=== PATIENT | male | born 1950 | race Caucasian/White ===

== ENCOUNTER 2018-07-18 09:51 | Outpatient (CLI) | payer OTHER, SELFPAY ==
[2018-07-18 10:14] LABS: Abs Immature Grans 0.07 k/cumm (0.0-0.09); Absolute Basophil Count 0.01 k/cumm (0.0-0.2); Absolute Lymphocyte Count 0.55 k/cumm (1.2-3.4); Absolute Neutrophil Count 6.17 k/cumm (1.2-6.7); Basophils % 0.1; HCT 41.1 % (40.0-50.0); Lymphocytes % 7.6; Mean Corp. HGB Concentration 34.1 g/dL (32.0-36.0); Mean Corpuscular Hemoglobin 32.6 pg (27.0-33.0); Mean Corpuscular Volume 95.8 fL (80-95); Mean Platelet Volume 8.8 fL (8.0-11.0); Monocytes % 5.6; Neutrophils % 85.7; Platelet Count 140 x1000/uL (130-400); RBC 4.29 m/cumm (4.50-6.00); RBC Distribution Width 14.6 % (11.8-14.1)
[2018-07-18 10:14] LABS: Bilirubin Negative (Negative); Blood Trace-intact (Negative); Clarity Clear; Glucose Negative (Negative); Ketones Negative (Negative); Leukocyte Esterase Negative (Negative); Nitrite Negative (Negative); Specific Gravity >= 1.030 (1.005-1.025); Urobilinogen 0.2 EU/dL (Up TO 0.2)
[2018-07-18 10:22] LABS: Bacteria Few HPF (Negative); C & S Indicated? No; Casts Negative LPF (Negative); Crystals Negative HPF (Negative); Epithelial Cells Rare HPF (Negative); Mucus Moderate (Negative); WBC 0-2 HPF (0-5)
[2018-07-18 10:31] LABS: ALT 42 U/L (12-78); AST 14 U/L (15-37); Albumin 3.3 g/dL (3.4-5.0); Alkaline Phosphatase 79 U/L (46-116); Anion Gap 7.3 mmol/L (3-11); BUN 20 mg/dL (7-18); Bilirubin, Total 0.3 mg/dL (0.2-1.0); CO2 24.7 mmol/L (21.0-32.0); CREATININE 0.93 mg/dL (0.70-1.30); Calcium 8.7 mg/dL (8.5-10.1); Chloride 102 mmol/L (98-107); Glucose 170 mg/dL (70-100); Potassium 3.7 mmol/L (3.5-5.1); Sodium 134 mmol/L (136-145); Total Protein 6.8 g/dL (6.4-8.2)
== END 2018-07-18 09:52 ==
PROVIDERS: Nurse Practitioner; PCP Family Medicine; Visit Provider Psychiatry & Neurology Neurology
DX: C71.9 Malignant neoplasm of brain, unspecified (principal)
CPT/HCPCS: 36415; 80053; 81003; 81015; 85025

== ENCOUNTER 2018-08-29 09:45 | Outpatient (CLI) | payer OTHER, SELFPAY ==
[2018-08-29 10:13] LABS: Bilirubin Negative (Negative); Blood Negative (Negative); Clarity Clear; Glucose Negative (Negative); Ketones Negative (Negative); Leukocyte Esterase Negative (Negative); Nitrite Negative (Negative); Specific Gravity >= 1.030 (1.005-1.025); Urobilinogen 0.2 EU/dL (Up TO 0.2); pH 5.5 (5-8)
[2018-08-29 10:33] LABS: ALT 42 U/L (12-78); AST 23 U/L (15-37); Albumin 3.6 g/dL (3.4-5.0); Alkaline Phosphatase 88 U/L (46-116); Anion Gap 8.3 mmol/L (3-11); BUN 14 mg/dL (7-18); Bilirubin, Total 0.4 mg/dL (0.2-1.0); CO2 28.7 mmol/L (21.0-32.0); CREATININE 0.96 mg/dL (0.70-1.30); Calcium 9.3 mg/dL (8.5-10.1); Chloride 103 mmol/L (98-107); Glucose 130 mg/dL (70-100); Potassium 3.9 mmol/L (3.5-5.1); Sodium 140 mmol/L (136-145); Total Protein 6.9 g/dL (6.4-8.2)
[2018-08-29 10:37] LABS: Abs Immature Grans 0.05 k/cumm (0.0-0.09); Absolute Basophil Count 0.03 k/cumm (0.0-0.2); Absolute Eosinophil Count 0.03 k/cumm (0.0-0.7); Absolute Monocyte Count 0.55 k/cumm (0.11-0.7); Absolute Neutrophil Count 1.49 k/cumm (1.2-6.7); HCT 37.8 % (40.0-50.0); HGB 12.4 g/dL (13.5-17.5); Immature Grans % 1.7; Lymphocytes % 27.1; Mean Corp. HGB Concentration 32.8 g/dL (32.0-36.0); Mean Corpuscular Hemoglobin 32.7 pg (27.0-33.0); Mean Corpuscular Volume 99.7 fL (80-95); Mean Platelet Volume 9.6 fL (8.0-11.0); Monocytes % 18.6; Neutrophils % 50.6; Platelet Count 183 x1000/uL (130-400); RBC 3.79 m/cumm (4.50-6.00); RBC Distribution Width 18.1 % (11.8-14.1); White Blood Cell Count 2.95 k/cumm (4.4-10.8)
[2018-08-29 11:01] LABS: Diff Comment Agrees w/ Instrument
[2018-08-29 11:02] LABS: Anisocytosis 1+; Polychromasia Present
== END 2018-08-29 10:05 ==
PROVIDERS: PCP Family Medicine; Visit Provider Nurse Practitioner
DX: C71.9 Malignant neoplasm of brain, unspecified (principal)
CPT/HCPCS: 36415; 80053; 81003; 85025

== ENCOUNTER 2018-10-08 09:56 | Outpatient (CLI) | payer OTHER, SELFPAY ==
[2018-10-08 10:23] LABS: Abs Immature Grans 0.02 k/cumm (0.0-0.09); Absolute Basophil Count 0.04 k/cumm (0.0-0.2); Absolute Eosinophil Count 0.16 k/cumm (0.0-0.7); Absolute Monocyte Count 0.51 k/cumm (0.11-0.7); Absolute Neutrophil Count 2.91 k/cumm (1.2-6.7); Basophils % 0.9; Eosinophils % 3.6; HCT 42.8 % (40.0-50.0); HGB 14.2 g/dL (13.5-17.5); Immature Grans % 0.5; Mean Corp. HGB Concentration 33.2 g/dL (32.0-36.0); Mean Corpuscular Hemoglobin 33.6 pg (27.0-33.0); Mean Corpuscular Volume 101.4 fL (80-95); Mean Platelet Volume 9.9 fL (8.0-11.0); Monocytes % 11.5; Neutrophils % 65.5; Platelet Count 161 x1000/uL (130-400); RBC 4.22 m/cumm (4.50-6.00); RBC Distribution Width 13.7 % (11.8-14.1); White Blood Cell Count 4.44 k/cumm (4.4-10.8)
[2018-10-08 10:25] LABS: Bilirubin Negative (Negative); Blood Negative (Negative); Clarity Clear; Glucose Negative (Negative); Ketones Negative (Negative); Leukocyte Esterase Negative (Negative); Nitrite Negative (Negative); Specific Gravity >= 1.030 (1.005-1.025); Urobilinogen 0.2 EU/dL (Up TO 0.2); pH 5.5 (5-8)
[2018-10-08 10:48] LABS: ALT 35 U/L (12-78); AST 23 U/L (15-37); Albumin 3.7 g/dL (3.4-5.0); Alkaline Phosphatase 79 U/L (46-116); BUN 16 mg/dL (7-18); Bilirubin, Total 0.4 mg/dL (0.2-1.0); CREATININE 0.89 mg/dL (0.70-1.30); Calcium 9.1 mg/dL (8.5-10.1); Chloride 103 mmol/L (98-107); Glucose 91 mg/dL (70-100); Potassium 3.9 mmol/L (3.5-5.1); Sodium 139 mmol/L (136-145); Total Protein 6.9 g/dL (6.4-8.2)
== END 2018-10-08 10:16 ==
PROVIDERS: PCP Family Medicine; Visit Provider Nurse Practitioner
DX: C71.9 Malignant neoplasm of brain, unspecified (principal)
CPT/HCPCS: 36415; 80053; 81003; 85025

== ENCOUNTER 2018-10-22 09:55 | Outpatient (CLI) | payer OTHER, SELFPAY ==
[2018-10-22 10:15] LABS: Abs Immature Grans 0.02 k/cumm (0.0-0.09); Absolute Basophil Count 0.04 k/cumm (0.0-0.2); Absolute Eosinophil Count 0.11 k/cumm (0.0-0.7); Absolute Lymphocyte Count 0.85 k/cumm (1.2-3.4); Absolute Monocyte Count 0.48 k/cumm (0.11-0.7); Basophils % 0.9; Eosinophils % 2.5; HCT 43.5 % (40.0-50.0); HGB 14.7 g/dL (13.5-17.5); Immature Grans % 0.5; Lymphocytes % 19.3; Mean Corp. HGB Concentration 33.8 g/dL (32.0-36.0); Mean Corpuscular Hemoglobin 33.6 pg (27.0-33.0); Mean Corpuscular Volume 99.3 fL (80-95); Mean Platelet Volume 10.1 fL (8.0-11.0); Monocytes % 10.9; Neutrophils % 65.9; RBC 4.38 m/cumm (4.50-6.00)
[2018-10-22 10:31] LABS: ALT 39 U/L (12-78); AST 26 U/L (15-37); Albumin 3.7 g/dL (3.4-5.0); Alkaline Phosphatase 79 U/L (46-116); Anion Gap 7.7 mmol/L (3-11); BUN 16 mg/dL (7-18); Bilirubin, Total 0.3 mg/dL (0.2-1.0); CO2 27.3 mmol/L (21.0-32.0); CREATININE 0.99 mg/dL (0.70-1.30); Calcium 9.2 mg/dL (8.5-10.1); Chloride 106 mmol/L (98-107); Glucose 95 mg/dL (70-100); Potassium 4.7 mmol/L (3.5-5.1); Sodium 141 mmol/L (136-145); Total Protein 6.9 g/dL (6.4-8.2)
[2018-10-22 10:34] LABS: Bilirubin Negative (Negative); Blood Trace-intact (Negative); Clarity Clear; Glucose Negative (Negative); Ketones Negative (Negative); Leukocyte Esterase Negative (Negative); Nitrite Negative (Negative); Specific Gravity >= 1.030 (1.005-1.025); Urobilinogen 0.2 EU/dL (Up TO 0.2)
[2018-10-22 10:45] LABS: Platelet Count 89 x1000/uL (130-400)
[2018-10-22 10:46] LABS: Diff Comment PLT Morph Reviewed
[2018-10-22 11:08] LABS: Bacteria Rare HPF (Negative); Epithelial Cells Negative HPF (Negative); Other Cells Negative (Negative)
[2018-10-22 11:09] LABS: C & S Indicated? No; Casts Negative LPF (Negative); Crystals Negative HPF (Negative); Mucus Heavy (Negative)
== END 2018-10-22 10:15 ==
PROVIDERS: Nurse Practitioner; PCP Family Medicine; Visit Provider Psychiatry & Neurology Neurocritical Care
DX: C71.9 Malignant neoplasm of brain, unspecified (principal)
CPT/HCPCS: 36415; 80053; 81003; 81015; 85025

== ENCOUNTER 2018-11-20 07:01 | Outpatient (CLI) | payer OTHER, SELFPAY ==
[2018-11-20 07:36] LABS: Abs Immature Grans 0.03 k/cumm (0.0-0.09); Absolute Basophil Count 0.02 k/cumm (0.0-0.2); Absolute Eosinophil Count 0.07 k/cumm (0.0-0.7); Absolute Lymphocyte Count 0.86 k/cumm (1.2-3.4); Absolute Monocyte Count 0.55 k/cumm (0.11-0.7); Absolute Neutrophil Count 1.83 k/cumm (1.2-6.7); Basophils % 0.6; Eosinophils % 2.1; HCT 45.2 % (40.0-50.0); HGB 14.9 g/dL (13.5-17.5); Immature Grans % 0.9; Lymphocytes % 25.6; Mean Corpuscular Hemoglobin 32.2 pg (27.0-33.0); Mean Corpuscular Volume 97.6 fL (80-95); Mean Platelet Volume 9.8 fL (8.0-11.0); Monocytes % 16.4; Neutrophils % 54.4; Platelet Count 155 x1000/uL (130-400); RBC 4.63 m/cumm (4.50-6.00); RBC Distribution Width 13.3 % (11.8-14.1); White Blood Cell Count 3.36 k/cumm (4.4-10.8)
[2018-11-20 07:45] LABS: ALT 37 U/L (12-78); AST 22 U/L (15-37); Albumin 3.6 g/dL (3.4-5.0); Alkaline Phosphatase 79 U/L (46-116); Anion Gap 8.3 mmol/L (3-11); BUN 19 mg/dL (7-18); Bilirubin Negative (Negative); Bilirubin, Total 0.4 mg/dL (0.2-1.0); Blood Trace-intact (Negative); CO2 28.7 mmol/L (21.0-32.0); CREATININE 0.98 mg/dL (0.70-1.30); Chloride 102 mmol/L (98-107); Clarity Clear; Glucose 107 mg/dL (70-100); Glucose Negative (Negative); Ketones Negative (Negative); Leukocyte Esterase Negative (Negative); Nitrite Negative (Negative); Potassium 3.9 mmol/L (3.5-5.1); Sodium 139 mmol/L (136-145); Specific Gravity 1.025 (1.005-1.025); Total Protein 6.9 g/dL (6.4-8.2); Urobilinogen 0.2 EU/dL (Up TO 0.2)
[2018-11-20 08:06] LABS: Bacteria Few HPF (Negative); Casts Negative LPF (Negative); Crystals Negative HPF (Negative); Epithelial Cells Rare HPF (Negative); Mucus Moderate (Negative); Other Cells Negative (Negative)
[2018-11-20 08:07] LABS: C & S Indicated? No
== END 2018-11-20 07:21 ==
PROVIDERS: PCP Family Medicine; Visit Provider Psychiatry & Neurology Neurocritical Care
DX: C71.9 Malignant neoplasm of brain, unspecified (principal)
CPT/HCPCS: 36415; 80053; 81003; 81015; 85025

== ENCOUNTER 2018-12-02 07:39 | Outpatient (CLI) | payer OTHER, SELFPAY ==
[2018-12-02 08:03] LABS: Abs Immature Grans 0.01 k/cumm (0.0-0.09); Absolute Basophil Count 0.01 k/cumm (0.0-0.2); Absolute Eosinophil Count 0.06 k/cumm (0.0-0.7); Absolute Lymphocyte Count 0.73 k/cumm (1.2-3.4); Absolute Monocyte Count 0.47 k/cumm (0.11-0.7); Absolute Neutrophil Count 1.94 k/cumm (1.2-6.7); Basophils % 0.3; Eosinophils % 1.9; HCT 44.4 % (40.0-50.0); HGB 14.4 g/dL (13.5-17.5); Immature Grans % 0.3; Lymphocytes % 22.7; Mean Corp. HGB Concentration 32.4 g/dL (32.0-36.0); Mean Corpuscular Hemoglobin 31.9 pg (27.0-33.0); Mean Corpuscular Volume 98.4 fL (80-95); Mean Platelet Volume 9.5 fL (8.0-11.0); Monocytes % 14.6; Neutrophils % 60.2; Platelet Count 147 x1000/uL (130-400); RBC 4.51 m/cumm (4.50-6.00); RBC Distribution Width 13.7 % (11.8-14.1); White Blood Cell Count 3.22 k/cumm (4.4-10.8)
[2018-12-02 08:09] LABS: Bilirubin Negative (Negative); Blood Negative (Negative); Clarity Clear; Glucose Negative (Negative); Ketones Negative (Negative); Leukocyte Esterase Negative (Negative); Nitrite Negative (Negative); Specific Gravity >= 1.030 (1.005-1.025); Urobilinogen 0.2 EU/dL (Up TO 0.2)
[2018-12-02 08:19] LABS: ALT 32 U/L (12-78); AST 18 U/L (15-37); Albumin 3.4 g/dL (3.4-5.0); Alkaline Phosphatase 79 U/L (46-116); BUN 15 mg/dL (7-18); Bilirubin, Total 0.3 mg/dL (0.2-1.0); CREATININE 0.98 mg/dL (0.70-1.30); Calcium 8.9 mg/dL (8.5-10.1); Chloride 107 mmol/L (98-107); Glucose 109 mg/dL (70-100); Potassium 4.2 mmol/L (3.5-5.1); Sodium 143 mmol/L (136-145); Total Protein 6.8 g/dL (6.4-8.2)
== END 2018-12-02 07:59 ==
PROVIDERS: PCP Internal Medicine; Visit Provider Nurse Practitioner
DX: C71.9 Malignant neoplasm of brain, unspecified (principal)
CPT/HCPCS: 36415; 80053; 81003; 85025

== ENCOUNTER 2018-12-18 11:53 | Outpatient (CLI) | payer OTHER, SELFPAY ==
[2018-12-18 12:27] LABS: Bilirubin Negative (Negative); Blood Negative (Negative); Clarity Clear; Glucose Negative (Negative); Ketones Trace mg/dL (Negative); Leukocyte Esterase Negative (Negative); Nitrite Negative (Negative); Specific Gravity >= 1.030 (1.005-1.025); Urobilinogen 0.2 EU/dL (Up TO 0.2)
[2018-12-18 12:27] LABS: Abs Immature Grans 0.05 k/cumm (0.0-0.09); Absolute Basophil Count 0.04 k/cumm (0.0-0.2); Absolute Eosinophil Count 0.07 k/cumm (0.0-0.7); Absolute Lymphocyte Count 0.93 k/cumm (1.2-3.4); Absolute Monocyte Count 0.59 k/cumm (0.11-0.7); Eosinophils % 1.7; HCT 46.2 % (40.0-50.0); HGB 15.1 g/dL (13.5-17.5); Immature Grans % 1.2; Lymphocytes % 22.2; Mean Corp. HGB Concentration 32.7 g/dL (32.0-36.0); Mean Corpuscular Hemoglobin 31.2 pg (27.0-33.0); Mean Corpuscular Volume 95.5 fL (80-95); Mean Platelet Volume 10.5 fL (8.0-11.0); Monocytes % 14.1; Neutrophils % 59.8; RBC 4.84 m/cumm (4.50-6.00); RBC Distribution Width 14.2 % (11.8-14.1); White Blood Cell Count 4.18 k/cumm (4.4-10.8)
[2018-12-18 12:33] LABS: ALT 27 U/L (12-78); AST 18 U/L (15-37); Albumin 3.6 g/dL (3.4-5.0); Alkaline Phosphatase 78 U/L (46-116); Anion Gap 5.9 mmol/L (3-11); BUN 20 mg/dL (7-18); Bilirubin, Total 0.4 mg/dL (0.2-1.0); CO2 30.1 mmol/L (21.0-32.0); CREATININE 0.92 mg/dL (0.70-1.30); Calcium 9.1 mg/dL (8.5-10.1); Chloride 106 mmol/L (98-107); Glucose 73 mg/dL (70-100); Potassium 4.2 mmol/L (3.5-5.1); Sodium 142 mmol/L (136-145)
[2018-12-18 12:42] LABS: Bacteria Rare HPF (Negative); C & S Indicated? No; Casts Negative LPF (Negative); Crystals Negative HPF (Negative); Epithelial Cells Negative HPF (Negative); Mucus Moderate (Negative); Other Cells Rare Renal (Negative); WBC 0-2 HPF (0-5)
[2018-12-18 12:45] LABS: Platelet Count 89 x1000/uL (130-400)
[2018-12-18 12:46] LABS: Diff Comment PLT Morph Reviewed; RBC Morphology Normal
== END 2018-12-18 12:13 ==
PROVIDERS: Nurse Practitioner; PCP Internal Medicine; Visit Provider Psychiatry & Neurology Neurocritical Care
DX: C71.8 Malignant neoplasm of overlapping sites of brain (principal)
CPT/HCPCS: 36415; 80053; 81003; 81015; 85025

== ENCOUNTER 2019-01-01 07:42 | Outpatient (CLI) | payer OTHER, SELFPAY ==
[2019-01-01 08:17] LABS: Bilirubin Negative (Negative); Blood Trace-intact (Negative); Clarity Clear; Glucose Negative (Negative); Ketones Trace mg/dL (Negative); Leukocyte Esterase Negative (Negative); Nitrite Negative (Negative); Specific Gravity 1.025 (1.005-1.025)
[2019-01-01 08:27] LABS: Absolute Basophil Count 0.03 k/cumm (0.0-0.2); Absolute Eosinophil Count 0.17 k/cumm (0.0-0.7); Absolute Lymphocyte Count 0.87 k/cumm (1.2-3.4); Absolute Monocyte Count 0.51 k/cumm (0.11-0.7); Absolute Neutrophil Count 3.12 k/cumm (1.2-6.7); Basophils % 0.6; Eosinophils % 3.6; HCT 44.1 % (40.0-50.0); HGB 14.3 g/dL (13.5-17.5); Lymphocytes % 18.5; Mean Corp. HGB Concentration 32.4 g/dL (32.0-36.0); Mean Corpuscular Hemoglobin 31.5 pg (27.0-33.0); Mean Corpuscular Volume 97.1 fL (80-95); Mean Platelet Volume 10.1 fL (8.0-11.0); Monocytes % 10.9; Neutrophils % 66.4; RBC 4.54 m/cumm (4.50-6.00); RBC Distribution Width 14.7 % (11.8-14.1)
[2019-01-01 08:29] LABS: ALT 32 U/L (12-78); AST 21 U/L (15-37); Albumin 3.4 g/dL (3.4-5.0); Alkaline Phosphatase 81 U/L (46-116); Anion Gap 5.1 mmol/L (3-11); BUN 16 mg/dL (7-18); Bilirubin, Total 0.4 mg/dL (0.2-1.0); CO2 29.9 mmol/L (21.0-32.0); CREATININE 1.04 mg/dL (0.70-1.30); Calcium 8.8 mg/dL (8.5-10.1); Chloride 105 mmol/L (98-107); Glucose 98 mg/dL (70-100); Potassium 4.4 mmol/L (3.5-5.1); Sodium 140 mmol/L (136-145); Total Protein 6.8 g/dL (6.4-8.2)
[2019-01-01 08:34] LABS: Bacteria Rare HPF (Negative); C & S Indicated? No; Casts Negative LPF (Negative); Crystals Negative HPF (Negative); Epithelial Cells Few HPF (Negative); Mucus Moderate (Negative); WBC Negative HPF (0-5)
[2019-01-01 08:37] LABS: Platelet Count 67 x1000/uL (130-400)
== END 2019-01-01 08:02 ==
PROVIDERS: Nurse Practitioner; PCP Internal Medicine; Visit Provider Psychiatry & Neurology Neurocritical Care
DX: C71.9 Malignant neoplasm of brain, unspecified (principal)
CPT/HCPCS: 36415; 80053; 81003; 81015; 85025

== ENCOUNTER 2019-01-08 07:21 | Outpatient (CLI) | payer OTHER, SELFPAY ==
[2019-01-08 07:49] LABS: Abs Immature Grans 0.02 k/cumm (0.0-0.09); Absolute Basophil Count 0.01 k/cumm (0.0-0.2); Absolute Eosinophil Count 0.18 k/cumm (0.0-0.7); Absolute Lymphocyte Count 0.83 k/cumm (1.2-3.4); Absolute Monocyte Count 0.43 k/cumm (0.11-0.7); Absolute Neutrophil Count 2.92 k/cumm (1.2-6.7); Basophils % 0.2; Eosinophils % 4.1; HCT 45.3 % (40.0-50.0); HGB 14.9 g/dL (13.5-17.5); Immature Grans % 0.5; Lymphocytes % 18.9; Mean Corp. HGB Concentration 32.9 g/dL (32.0-36.0); Mean Corpuscular Hemoglobin 31.8 pg (27.0-33.0); Mean Corpuscular Volume 96.6 fL (80-95); Mean Platelet Volume 10.4 fL (8.0-11.0); Monocytes % 9.8; Neutrophils % 66.5; Platelet Count 83 x1000/uL (130-400); RBC 4.69 m/cumm (4.50-6.00); RBC Distribution Width 15.4 % (11.8-14.1); White Blood Cell Count 4.39 k/cumm (4.4-10.8)
[2019-01-08 08:04] LABS: Bilirubin Negative (Negative); Blood Negative (Negative); Clarity Clear; Glucose Negative (Negative); Ketones Trace mg/dL (Negative); Leukocyte Esterase Negative (Negative); Nitrite Negative (Negative); Specific Gravity >= 1.030 (1.005-1.025); Urobilinogen 0.2 EU/dL (Up TO 0.2); pH 5.5 (5-8)
[2019-01-08 09:00] LABS: ALT 32 U/L (12-78); AST 21 U/L (15-37); Albumin 3.6 g/dL (3.4-5.0); Alkaline Phosphatase 90 U/L (46-116); Anion Gap 10.7 mmol/L (3-11); BUN 16 mg/dL (7-18); Bilirubin, Total 0.7 mg/dL (0.2-1.0); CO2 24.3 mmol/L (21.0-32.0); CREATININE 1.05 mg/dL (0.70-1.30); Calcium 9.2 mg/dL (8.5-10.1); Chloride 105 mmol/L (98-107); Glucose 113 mg/dL (70-100); Potassium 4.1 mmol/L (3.5-5.1); Sodium 140 mmol/L (136-145); Total Protein 7.1 g/dL (6.4-8.2)
== END 2019-01-08 07:41 ==
PROVIDERS: PCP Internal Medicine; Visit Provider Nurse Practitioner
DX: C71.9 Malignant neoplasm of brain, unspecified (principal)
CPT/HCPCS: 36415; 80053; 81003; 85025

== ENCOUNTER 2019-01-21 00:50 | Outpatient (CLI) | payer OTHER, SELFPAY ==
[2019-01-21 07:45] LABS: Abs Immature Grans 0.02 k/cumm (0.0-0.09); Absolute Basophil Count 0.02 k/cumm (0.0-0.2); Absolute Eosinophil Count 0.08 k/cumm (0.0-0.7); Absolute Lymphocyte Count 0.73 k/cumm (1.2-3.4); Absolute Monocyte Count 0.35 k/cumm (0.11-0.7); Absolute Neutrophil Count 2.21 k/cumm (1.2-6.7); Basophils % 0.6; Eosinophils % 2.3; HCT 43.4 % (40.0-50.0); HGB 14.2 g/dL (13.5-17.5); Immature Grans % 0.6; Lymphocytes % 21.4; Mean Corp. HGB Concentration 32.7 g/dL (32.0-36.0); Mean Corpuscular Hemoglobin 32.2 pg (27.0-33.0); Mean Corpuscular Volume 98.4 fL (80-95); Mean Platelet Volume 9.4 fL (8.0-11.0); Monocytes % 10.3; Neutrophils % 64.8; Platelet Count 116 x1000/uL (130-400); RBC 4.41 m/cumm (4.50-6.00); RBC Distribution Width 15.7 % (11.8-14.1); White Blood Cell Count 3.41 k/cumm (4.4-10.8)
[2019-01-21 07:54] LABS: Bilirubin Negative (Negative); Blood Negative (Negative); Clarity Clear; Glucose Negative (Negative); Ketones Trace mg/dL (Negative); Leukocyte Esterase Negative (Negative); Nitrite Negative (Negative); Specific Gravity 1.025 (1.005-1.025); Urobilinogen 0.2 EU/dL (Up TO 0.2)
[2019-01-21 07:58] LABS: ALT 33 U/L (12-78); AST 20 U/L (15-37); Albumin 3.5 g/dL (3.4-5.0); Alkaline Phosphatase 87 U/L (46-116); Anion Gap 7.5 mmol/L (3-11); BUN 15 mg/dL (7-18); Bilirubin, Total 0.6 mg/dL (0.2-1.0); CO2 28.5 mmol/L (21.0-32.0); CREATININE 0.93 mg/dL (0.70-1.30); Chloride 105 mmol/L (98-107); Glucose 104 mg/dL (70-100); Potassium 4.5 mmol/L (3.5-5.1); Sodium 141 mmol/L (136-145); Total Protein 6.7 g/dL (6.4-8.2)
== END 2019-01-21 01:10 ==
PROVIDERS: PCP Internal Medicine; Visit Provider Nurse Practitioner
DX: C71.9 Malignant neoplasm of brain, unspecified (principal)
CPT/HCPCS: 36415; 80053; 81003; 85025

== ENCOUNTER 2019-02-05 07:25 | Outpatient (CLI) | payer OTHER, SELFPAY ==
[2019-02-05 07:52] LABS: Abs Immature Grans 0.01 k/cumm (0.0-0.09); Absolute Basophil Count 0.03 k/cumm (0.0-0.2); Absolute Eosinophil Count 0.09 k/cumm (0.0-0.7); Absolute Lymphocyte Count 0.81 k/cumm (1.2-3.4); Absolute Monocyte Count 0.56 k/cumm (0.11-0.7); Basophils % 0.8; Eosinophils % 2.3; HCT 43.6 % (40.0-50.0); HGB 14.6 g/dL (13.5-17.5); Immature Grans % 0.3; Lymphocytes % 20.3; Mean Corp. HGB Concentration 33.5 g/dL (32.0-36.0); Mean Corpuscular Hemoglobin 33.5 pg (27.0-33.0); Mean Platelet Volume 9.6 fL (8.0-11.0); Neutrophils % 62.3; Platelet Count 115 x1000/uL (130-400); RBC 4.36 m/cumm (4.50-6.00)
[2019-02-05 07:57] LABS: Absolute Neutrophil Count 2.49 k/cumm (1.2-6.7)
[2019-02-05 08:02] LABS: Bilirubin Small (Negative); Blood Negative (Negative); Clarity Clear; Glucose Negative (Negative); Ketones Trace mg/dL (Negative); Leukocyte Esterase Negative (Negative); Nitrite Negative (Negative); Specific Gravity >= 1.030 (1.005-1.025); Urobilinogen 0.2 EU/dL (Up TO 0.2); pH 5.5 (5-8)
[2019-02-05 08:09] LABS: ALT 35 U/L (12-78); AST 27 U/L (15-37); Albumin 3.7 g/dL (3.4-5.0); Alkaline Phosphatase 82 U/L (46-116); Anion Gap 6.7 mmol/L (3-11); BUN 22 mg/dL (7-18); Bilirubin, Total 0.6 mg/dL (0.2-1.0); CO2 29.3 mmol/L (21.0-32.0); CREATININE 0.99 mg/dL (0.70-1.30); Calcium 8.9 mg/dL (8.5-10.1); Chloride 102 mmol/L (98-107); Glucose 102 mg/dL (70-100); Potassium 4.2 mmol/L (3.5-5.1); Sodium 138 mmol/L (136-145)
== END 2019-02-05 07:45 ==
PROVIDERS: PCP Internal Medicine; Visit Provider Nurse Practitioner
DX: C71.8 Malignant neoplasm of overlapping sites of brain (principal)
CPT/HCPCS: 36415; 80053; 81003; 85025

== ENCOUNTER 2019-02-19 00:46 | Outpatient (CLI) | payer OTHER, SELFPAY ==
[2019-02-19 07:42] LABS: Abs Immature Grans 0.02 k/cumm (0.0-0.09); Absolute Basophil Count 0.05 k/cumm (0.0-0.2); Absolute Eosinophil Count 0.52 k/cumm (0.0-0.7); Absolute Lymphocyte Count 0.91 k/cumm (1.2-3.4); Absolute Monocyte Count 0.51 k/cumm (0.11-0.7); Absolute Neutrophil Count 3.13 k/cumm (1.2-6.7); Eosinophils % 10.1; HCT 46.6 % (40.0-50.0); HGB 14.9 g/dL (13.5-17.5); Immature Grans % 0.4; Lymphocytes % 17.7; Mean Corpuscular Hemoglobin 32.2 pg (27.0-33.0); Mean Corpuscular Volume 100.6 fL (80-95); Mean Platelet Volume 9.7 fL (8.0-11.0); Monocytes % 9.9; Neutrophils % 60.9; Platelet Count 113 x1000/uL (130-400); RBC 4.63 m/cumm (4.50-6.00); RBC Distribution Width 15.4 % (11.8-14.1); White Blood Cell Count 5.14 k/cumm (4.4-10.8)
[2019-02-19 07:49] LABS: ALT 38 U/L (12-78); AST 22 U/L (15-37); Albumin 3.7 g/dL (3.4-5.0); Alkaline Phosphatase 90 U/L (46-116); Anion Gap 8.2 mmol/L (3-11); BUN 19 mg/dL (7-18); Bilirubin, Total 0.5 mg/dL (0.2-1.0); CO2 27.8 mmol/L (21.0-32.0); CREATININE 0.98 mg/dL (0.70-1.30); Calcium 9.1 mg/dL (8.5-10.1); Chloride 104 mmol/L (98-107); Glucose 94 mg/dL (70-100); Potassium 4.4 mmol/L (3.5-5.1); Sodium 140 mmol/L (136-145)
[2019-02-19 07:51] LABS: Bilirubin Negative (Negative); Blood Negative (Negative); Clarity Clear; Glucose Negative (Negative); Ketones Negative (Negative); Leukocyte Esterase Negative (Negative); Nitrite Negative (Negative); Specific Gravity >= 1.030 (1.005-1.025); Urobilinogen 0.2 EU/dL (Up TO 0.2); pH 5.5 (5-8)
[2019-02-19 08:21] LABS: Bacteria Negative HPF (Negative); C & S Indicated? No; Casts Negative LPF (Negative); Crystals Negative HPF (Negative); Epithelial Cells Negative HPF (Negative); Mucus Trace (Negative); RBC Negative (0-2); WBC 0-2 HPF (0-5)
== END 2019-02-19 01:06 ==
PROVIDERS: PCP Internal Medicine; Visit Provider Nurse Practitioner
DX: C71.9 Malignant neoplasm of brain, unspecified (principal)
CPT/HCPCS: 36415; 80053; 81003; 81015; 85025

== ENCOUNTER 2019-03-05 01:01 | Outpatient (CLI) | payer OTHER, SELFPAY ==
[2019-03-05 07:32] LABS: Abs Immature Grans 0.04 k/cumm (0.0-0.09); Absolute Basophil Count 0.02 k/cumm (0.0-0.2); Absolute Eosinophil Count 0.49 k/cumm (0.0-0.7); Absolute Lymphocyte Count 0.74 k/cumm (1.2-3.4); Absolute Monocyte Count 0.56 k/cumm (0.11-0.7); Basophils % 0.3; Eosinophils % 8.5; HCT 46.5 % (40.0-50.0); HGB 15.3 g/dL (13.5-17.5); Immature Grans % 0.7; Lymphocytes % 12.9; Mean Corp. HGB Concentration 32.9 g/dL (32.0-36.0); Mean Corpuscular Volume 100.4 fL (80-95); Mean Platelet Volume 9.5 fL (8.0-11.0); Monocytes % 9.7; Neutrophils % 67.9; Platelet Count 104 x1000/uL (130-400); RBC 4.63 m/cumm (4.50-6.00); RBC Distribution Width 14.8 % (11.8-14.1); White Blood Cell Count 5.75 k/cumm (4.4-10.8)
[2019-03-05 07:36] LABS: Bilirubin Negative (Negative); Blood Negative (Negative); Clarity Clear; Glucose Negative (Negative); Ketones Negative (Negative); Leukocyte Esterase Negative (Negative); Nitrite Negative (Negative)
[2019-03-05 07:45] LABS: ALT 51 U/L (12-78); AST 30 U/L (15-37); Albumin 3.6 g/dL (3.4-5.0); Alkaline Phosphatase 112 U/L (46-116); Anion Gap 8.1 mmol/L (3-11); BUN 17 mg/dL (7-18); Bilirubin, Total 0.6 mg/dL (0.2-1.0); CO2 28.9 mmol/L (21.0-32.0); CREATININE 0.93 mg/dL (0.70-1.30); Calcium 8.7 mg/dL (8.5-10.1); Chloride 101 mmol/L (98-107); Glucose 112 mg/dL (70-100); Potassium 4.1 mmol/L (3.5-5.1); Sodium 138 mmol/L (136-145); Total Protein 6.9 g/dL (6.4-8.2)
== END 2019-03-05 01:21 ==
PROVIDERS: PCP Internal Medicine; Visit Provider Nurse Practitioner
DX: C71.9 Malignant neoplasm of brain, unspecified (principal)
CPT/HCPCS: 36415; 80053; 81003; 85025

== ENCOUNTER 2019-03-19 02:29 | Outpatient (CLI) | payer OTHER, SELFPAY ==
[2019-03-19 11:42] LABS: Bilirubin Negative (Negative); Blood Negative (Negative); Clarity Clear; Glucose Negative (Negative); Ketones Trace mg/dL (Negative); Leukocyte Esterase Negative (Negative); Nitrite Negative (Negative); Specific Gravity >= 1.030 (1.005-1.025); Urobilinogen 0.2 EU/dL (Up TO 0.2)
[2019-03-19 11:50] LABS: Abs Immature Grans 0.02 k/cumm (0.0-0.09); Absolute Basophil Count 0.02 k/cumm (0.0-0.2); Absolute Lymphocyte Count 0.76 k/cumm (1.2-3.4); Absolute Monocyte Count 0.48 k/cumm (0.11-0.7); Absolute Neutrophil Count 3.56 k/cumm (1.2-6.7); Basophils % 0.4; HCT 46.4 % (40.0-50.0); HGB 15.4 g/dL (13.5-17.5); Immature Grans % 0.4; Lymphocytes % 15.4; Mean Corp. HGB Concentration 33.2 g/dL (32.0-36.0); Mean Corpuscular Hemoglobin 33.4 pg (27.0-33.0); Mean Corpuscular Volume 100.7 fL (80-95); Mean Platelet Volume 10.3 fL (8.0-11.0); Monocytes % 9.7; Neutrophils % 72.1; Platelet Count 102 x1000/uL (130-400); RBC 4.61 m/cumm (4.50-6.00); RBC Distribution Width 14.7 % (11.8-14.1); White Blood Cell Count 4.94 k/cumm (4.4-10.8)
[2019-03-19 11:53] LABS: Bacteria Negative HPF (Negative); C & S Indicated? No; Casts Negative LPF (Negative); Crystals Negative HPF (Negative); Epithelial Cells Few HPF (Negative); Mucus Heavy (Negative); RBC 0-2 (0-2); WBC 0-2 HPF (0-5)
[2019-03-19 11:54] LABS: ALT 43 U/L (12-78); AST 32 U/L (15-37); Albumin 3.6 g/dL (3.4-5.0); Alkaline Phosphatase 93 U/L (46-116); Anion Gap 9.7 mmol/L (3-11); BUN 24 mg/dL (7-18); Bilirubin, Total 0.5 mg/dL (0.2-1.0); CO2 23.3 mmol/L (21.0-32.0); CREATININE 0.95 mg/dL (0.70-1.30); Chloride 103 mmol/L (98-107); Glucose 115 mg/dL (70-100); Potassium 4.8 mmol/L (3.5-5.1); Sodium 136 mmol/L (136-145); Total Protein 7.1 g/dL (6.4-8.2)
== END 2019-03-19 02:49 ==
PROVIDERS: PCP Internal Medicine; Visit Provider Nurse Practitioner
DX: C71.9 Malignant neoplasm of brain, unspecified (principal)
CPT/HCPCS: 36415; 80053; 81003; 81015; 85025

== ENCOUNTER 2019-04-02 02:09 | Outpatient (CLI) | payer OTHER, SELFPAY ==
[2019-04-02 07:43] LABS: Abs Immature Grans 0.03 k/cumm (0.0-0.09); Absolute Basophil Count 0.02 k/cumm (0.0-0.2); Absolute Eosinophil Count 0.12 k/cumm (0.0-0.7); Absolute Lymphocyte Count 0.66 k/cumm (1.2-3.4); Absolute Monocyte Count 0.57 k/cumm (0.11-0.7); Absolute Neutrophil Count 3.26 k/cumm (1.2-6.7); Basophils % 0.4; Eosinophils % 2.6; HGB 15.2 g/dL (13.5-17.5); Immature Grans % 0.6; Lymphocytes % 14.2; Mean Corp. HGB Concentration 32.3 g/dL (32.0-36.0); Mean Corpuscular Hemoglobin 32.5 pg (27.0-33.0); Mean Corpuscular Volume 100.6 fL (80-95); Mean Platelet Volume 10.7 fL (8.0-11.0); Monocytes % 12.2; RBC 4.67 m/cumm (4.50-6.00); RBC Distribution Width 14.4 % (11.8-14.1); White Blood Cell Count 4.66 k/cumm (4.4-10.8)
[2019-04-02 08:00] LABS: Bilirubin Negative (Negative); Blood Negative (Negative); Clarity Clear; Glucose Negative (Negative); Ketones Trace mg/dL (Negative); Leukocyte Esterase Negative (Negative); Nitrite Negative (Negative); Specific Gravity >= 1.030 (1.005-1.025)
[2019-04-02 08:01] LABS: ALT 40 U/L (12-78); AST 25 U/L (15-37); Albumin 3.6 g/dL (3.4-5.0); Alkaline Phosphatase 91 U/L (46-116); Anion Gap 7.5 mmol/L (3-11); BUN 21 mg/dL (7-18); Bilirubin, Total 0.4 mg/dL (0.2-1.0); CO2 28.5 mmol/L (21.0-32.0); CREATININE 0.94 mg/dL (0.70-1.30); Calcium 9.3 mg/dL (8.5-10.1); Chloride 106 mmol/L (98-107); Glucose 98 mg/dL (70-100); Potassium 4.6 mmol/L (3.5-5.1); Sodium 142 mmol/L (136-145); TSH 3.45 uIU/mL (0.358-3.74)
[2019-04-02 08:08] LABS: Diff Comment PLT Morph Reviewed; Macrocytosis 2+; Platelet Count 75 x1000/uL (130-400); Polychromasia Present
[2019-04-02 08:15] LABS: RBC Negative (0-2); WBC Negative HPF (0-5)
[2019-04-02 08:16] LABS: Bacteria Negative HPF (Negative); C & S Indicated? No; Casts Negative LPF (Negative); Crystals Negative HPF (Negative); Epithelial Cells Negative HPF (Negative); Mucus Negative (Negative); Other Cells Negative (Negative)
== END 2019-04-02 02:29 ==
PROVIDERS: PCP Internal Medicine; Visit Provider Nurse Practitioner
DX: C71.9 Malignant neoplasm of brain, unspecified (principal); R53.83 Other fatigue
CPT/HCPCS: 36415; 80053; 81003; 81015; 84443; 85025

== ENCOUNTER 2019-04-17 06:53 | Outpatient (CLI) | payer OTHER, SELFPAY ==
[2019-04-16 08:01] LABS: Abs Immature Grans 0.02 k/cumm (0.0-0.09); Absolute Basophil Count 0.02 k/cumm (0.0-0.2); Absolute Eosinophil Count 0.21 k/cumm (0.0-0.7); Absolute Lymphocyte Count 0.72 k/cumm (1.2-3.4); Absolute Monocyte Count 0.48 k/cumm (0.11-0.7); Basophils % 0.5; Eosinophils % 5.5; HGB 14.5 g/dL (13.5-17.5); Immature Grans % 0.5; Lymphocytes % 18.9; Mean Corpuscular Hemoglobin 33.8 pg (27.0-33.0); Mean Corpuscular Volume 102.6 fL (80-95); Mean Platelet Volume 9.9 fL (8.0-11.0); Monocytes % 12.6; RBC 4.29 m/cumm (4.50-6.00); RBC Distribution Width 14.8 % (11.8-14.1)
[2019-04-16 08:06] LABS: Bilirubin Negative (Negative); Blood Negative (Negative); Clarity Clear; Glucose Negative (Negative); Ketones Trace mg/dL (Negative); Leukocyte Esterase Negative (Negative); Nitrite Negative (Negative); Urobilinogen 0.2 EU/dL (Up TO 0.2)
[2019-04-16 08:15] LABS: Absolute Neutrophil Count 2.36 k/cumm (1.2-6.7)
[2019-04-16 08:19] LABS: Platelet Count 68 x1000/uL (130-400)
[2019-04-16 08:20] LABS: Anisocytosis 1+; Diff Comment RBC Morph Reviewed; Macrocytosis 1+; Polychromasia Present
[2019-04-16 08:24] LABS: ALT 41 U/L (12-78); AST 26 U/L (15-37); Albumin 3.3 g/dL (3.4-5.0); Alkaline Phosphatase 95 U/L (46-116); Anion Gap 8.4 mmol/L (3-11); BUN 20 mg/dL (7-18); Bilirubin, Total 0.4 mg/dL (0.2-1.0); CO2 26.6 mmol/L (21.0-32.0); CREATININE 0.98 mg/dL (0.70-1.30); Calcium 8.8 mg/dL (8.5-10.1); Chloride 107 mmol/L (98-107); Glucose 110 mg/dL (70-100); Potassium 4.3 mmol/L (3.5-5.1); Sodium 142 mmol/L (136-145); Total Protein 6.4 g/dL (6.4-8.2)
== END 2019-04-17 07:13 ==
PROVIDERS: PCP Internal Medicine; Visit Provider Nurse Practitioner
DX: C71.9 Malignant neoplasm of brain, unspecified (principal)
CPT/HCPCS: 80053; 81003; 85025

== ENCOUNTER 2019-04-30 02:01 | Outpatient (CLI) | payer OTHER, SELFPAY ==
[2019-04-30 07:33] LABS: Abs Immature Grans 0.02 k/cumm (0.0-0.09); Absolute Basophil Count 0.01 k/cumm (0.0-0.2); Absolute Eosinophil Count 0.14 k/cumm (0.0-0.7); Absolute Lymphocyte Count 0.76 k/cumm (1.2-3.4); Absolute Monocyte Count 0.52 k/cumm (0.11-0.7); Absolute Neutrophil Count 2.09 k/cumm (1.2-6.7); Basophils % 0.3; HCT 44.4 % (40.0-50.0); HGB 14.8 g/dL (13.5-17.5); Immature Grans % 0.6; Lymphocytes % 21.5; Mean Corp. HGB Concentration 33.3 g/dL (32.0-36.0); Mean Corpuscular Hemoglobin 34.1 pg (27.0-33.0); Mean Corpuscular Volume 102.3 fL (80-95); Mean Platelet Volume 9.6 fL (8.0-11.0); Monocytes % 14.7; Neutrophils % 58.9; RBC 4.34 m/cumm (4.50-6.00); RBC Distribution Width 14.9 % (11.8-14.1); White Blood Cell Count 3.54 k/cumm (4.4-10.8)
[2019-04-30 07:43] LABS: ALT 39 U/L (12-78); AST 24 U/L (15-37); Albumin 3.5 g/dL (3.4-5.0); Alkaline Phosphatase 93 U/L (46-116); Anion Gap 10.4 mmol/L (3-11); BUN 20 mg/dL (7-18); Bilirubin, Total 0.4 mg/dL (0.2-1.0); CO2 27.6 mmol/L (21.0-32.0); CREATININE 1.14 mg/dL (0.70-1.30); Calcium 8.8 mg/dL (8.5-10.1); Chloride 104 mmol/L (98-107); Glucose 115 mg/dL (70-100); Sodium 142 mmol/L (136-145); Total Protein 6.5 g/dL (6.4-8.2)
[2019-04-30 07:49] LABS: Platelet Count 91 x1000/uL (130-400)
== END 2019-04-30 02:21 ==
PROVIDERS: PCP Internal Medicine; Visit Provider Nurse Practitioner
DX: C71.9 Malignant neoplasm of brain, unspecified (principal)
CPT/HCPCS: 36415; 80053; 81003; 85025

== ENCOUNTER 2019-05-14 01:20 | Outpatient (CLI) | payer OTHER, SELFPAY ==
[2019-05-14 08:14] LABS: Abs Immature Grans 0.02 k/cumm (0.0-0.09); Absolute Basophil Count 0.02 k/cumm (0.0-0.2); Absolute Eosinophil Count 0.17 k/cumm (0.0-0.7); Absolute Lymphocyte Count 0.62 k/cumm (1.2-3.4); Absolute Monocyte Count 0.49 k/cumm (0.11-0.7); Absolute Neutrophil Count 2.43 k/cumm (1.2-6.7); Basophils % 0.5; Eosinophils % 4.5; HCT 45.3 % (40.0-50.0); HGB 14.9 g/dL (13.5-17.5); Immature Grans % 0.5; Lymphocytes % 16.5; Mean Corp. HGB Concentration 32.9 g/dL (32.0-36.0); Mean Corpuscular Hemoglobin 33.7 pg (27.0-33.0); Mean Corpuscular Volume 102.5 fL (80-95); Mean Platelet Volume 9.9 fL (8.0-11.0); Monocytes % 13.1; Neutrophils % 64.9; RBC 4.42 m/cumm (4.50-6.00); RBC Distribution Width 14.9 % (11.8-14.1); White Blood Cell Count 3.75 k/cumm (4.4-10.8)
[2019-05-14 08:15] LABS: Bilirubin Negative (Negative); Blood Moderate (Negative); Clarity Clear; Glucose Negative (Negative); Ketones Negative (Negative); Leukocyte Esterase Negative (Negative); Nitrite Negative (Negative); Specific Gravity 1.015 (1.005-1.025); Urobilinogen 0.2 EU/dL (Up TO 0.2); pH 5.5 (5-8)
[2019-05-14 08:39] LABS: ALT 37 U/L (12-78); AST 26 U/L (15-37); Albumin 3.5 g/dL (3.4-5.0); Alkaline Phosphatase 96 U/L (46-116); Anion Gap 9.3 mmol/L (3-11); BUN 14 mg/dL (7-18); Bilirubin, Total 0.4 mg/dL (0.2-1.0); CO2 27.7 mmol/L (21.0-32.0); CREATININE 0.99 mg/dL (0.70-1.30); Calcium 8.7 mg/dL (8.5-10.1); Chloride 106 mmol/L (98-107); Glucose 145 mg/dL (70-100); Potassium 3.8 mmol/L (3.5-5.1); Sodium 143 mmol/L (136-145); Total Protein 6.8 g/dL (6.4-8.2)
[2019-05-14 08:46] LABS: Diff Comment PLT Morph Reviewed; Macrocytosis 2+; Platelet Count 97 x1000/uL (130-400)
--- NOTE | 2019-05-14 10:00 | DI.RAD_ITS ---
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 RIB FX PA AND LATERAL CHEST: The lungs are well expanded and free of infiltrate. There is no evidence of a mass. There is no pleural effusion. The cardiovascular structures are intact. SUMMARY: Normal chest
== END 2019-05-14 01:40 ==
PROVIDERS: PCP Internal Medicine; Visit Provider Nurse Practitioner
DX: C71.9 Malignant neoplasm of brain, unspecified (principal); R07.89 Other chest pain
CPT/HCPCS: 36415; 80053; 71046; 81003; 81015; 85025

== ENCOUNTER 2019-06-04 07:04 | Outpatient (CLI) | payer OTHER, SELFPAY ==
[2019-06-04 07:36] LABS: Bilirubin Negative (Negative); Blood Negative (Negative); Clarity Clear (Clear); Glucose Negative (Negative); Ketones Negative (Negative); Leukocyte Esterase Negative (Negative); Nitrite Negative (Negative)
[2019-06-04 07:37] LABS: Abs Immature Grans 0.03 k/cumm (0.0-0.09); Absolute Basophil Count 0.03 k/cumm (0.0-0.2); Absolute Eosinophil Count 0.26 k/cumm (0.0-0.7); Absolute Lymphocyte Count 0.72 k/cumm (1.2-3.4); Absolute Monocyte Count 0.45 k/cumm (0.11-0.7); Absolute Neutrophil Count 2.41 k/cumm (1.2-6.7); Basophils % 0.8; Eosinophils % 6.7; HCT 42.2 % (40.0-50.0); HGB 14.6 g/dL (13.5-17.5); Immature Grans % 0.8; Lymphocytes % 18.5; Mean Corp. HGB Concentration 34.6 g/dL (32.0-36.0); Mean Corpuscular Hemoglobin 34.8 pg (27.0-33.0); Mean Corpuscular Volume 100.7 fL (80-95); Mean Platelet Volume 9.9 fL (8.0-11.0); Monocytes % 11.5; Neutrophils % 61.7; RBC 4.19 m/cumm (4.50-6.00); RBC Distribution Width 14.8 % (11.8-14.1)
[2019-06-04 08:07] LABS: ALT 38 U/L (12-78); AST 21 U/L (15-37); Albumin 3.4 g/dL (3.4-5.0); Alkaline Phosphatase 100 U/L (46-116); Anion Gap 8.5 mmol/L (3-11); BUN 17 mg/dL (7-18); Bilirubin, Total 0.3 mg/dL (0.2-1.0); CO2 28.5 mmol/L (21.0-32.0); CREATININE 0.88 mg/dL (0.70-1.30); Calcium 8.3 mg/dL (8.5-10.1); Chloride 108 mmol/L (98-107); Glucose 115 mg/dL (70-100); Sodium 145 mmol/L (136-145); Total Protein 6.4 g/dL (6.4-8.2)
[2019-06-04 08:25] LABS: Diff Comment Diff Reviewed
[2019-06-04 08:26] LABS: Platelet Count 96 x1000/uL (130-400)
[2019-06-04 08:27] LABS: Macrocytosis 1+
[2019-06-04 08:29] LABS: Polychromasia Present
== END 2019-06-04 07:24 ==
PROVIDERS: PCP Internal Medicine; Visit Provider Nurse Practitioner Adult Health
DX: C71.9 Malignant neoplasm of brain, unspecified (principal)
CPT/HCPCS: 36415; 80053; 81003; 85025

== ENCOUNTER 2019-06-18 07:01 | Outpatient (CLI) | payer OTHER, SELFPAY ==
[2019-06-18 07:26] LABS: Bilirubin Negative (Negative); Blood Negative (Negative); Clarity Clear (Clear); Glucose Negative (Negative); Ketones Negative (Negative); Leukocyte Esterase Negative (Negative); Nitrite Negative (Negative); Specific Gravity 1.015 (1.005-1.025)
[2019-06-18 07:33] LABS: Abs Immature Grans 0.03 k/cumm (0.0-0.09); Absolute Basophil Count 0.02 k/cumm (0.0-0.2); Absolute Eosinophil Count 0.17 k/cumm (0.0-0.7); Absolute Lymphocyte Count 0.59 k/cumm (1.2-3.4); Absolute Monocyte Count 0.51 k/cumm (0.11-0.7); Absolute Neutrophil Count 2.51 k/cumm (1.2-6.7); Basophils % 0.5; Eosinophils % 4.4; HCT 45.8 % (40.0-50.0); HGB 14.8 g/dL (13.5-17.5); Immature Grans % 0.8; Lymphocytes % 15.4; Mean Corp. HGB Concentration 32.3 g/dL (32.0-36.0); Mean Corpuscular Hemoglobin 33.1 pg (27.0-33.0); Mean Corpuscular Volume 102.5 fL (80-95); Mean Platelet Volume 9.8 fL (8.0-11.0); Monocytes % 13.3; Neutrophils % 65.6; RBC 4.47 m/cumm (4.50-6.00); RBC Distribution Width 14.5 % (11.8-14.1); White Blood Cell Count 3.83 k/cumm (4.4-10.8)
[2019-06-18 07:51] LABS: ALT 35 U/L (12-78); AST 20 U/L (15-37); Albumin 3.5 g/dL (3.4-5.0); Alkaline Phosphatase 98 U/L (46-116); Anion Gap 7.5 mmol/L (3-11); BUN 14 mg/dL (7-18); Bilirubin, Total 0.3 mg/dL (0.2-1.0); CO2 28.5 mmol/L (21.0-32.0); CREATININE 0.79 mg/dL (0.70-1.30); Chloride 106 mmol/L (98-107); Glucose 115 mg/dL (70-100); Potassium 3.8 mmol/L (3.5-5.1); Sodium 142 mmol/L (136-145); Total Protein 6.7 g/dL (6.4-8.2)
[2019-06-18 08:04] LABS: Platelet Count 98 x1000/uL (130-400)
== END 2019-06-18 07:21 ==
PROVIDERS: PCP Internal Medicine; Visit Provider Nurse Practitioner
DX: C71.9 Malignant neoplasm of brain, unspecified (principal)
CPT/HCPCS: 36415; 80053; 81003; 85025

== ENCOUNTER 2019-07-16 07:02 | Outpatient (CLI) | payer OTHER, SELFPAY ==
[2019-07-16 07:28] LABS: Abs Immature Grans 0.02 k/cumm (0.0-0.09); Absolute Basophil Count 0.03 k/cumm (0.0-0.2); Absolute Eosinophil Count 0.16 k/cumm (0.0-0.7); Absolute Lymphocyte Count 0.58 k/cumm (1.2-3.4); Absolute Monocyte Count 0.48 k/cumm (0.11-0.7); Absolute Neutrophil Count 2.84 k/cumm (1.2-6.7); Basophils % 0.7; Eosinophils % 3.9; HCT 43.7 % (40.0-50.0); HGB 14.7 g/dL (13.5-17.5); Immature Grans % 0.5; Lymphocytes % 14.1; Mean Corp. HGB Concentration 33.6 g/dL (32.0-36.0); Mean Corpuscular Hemoglobin 34.4 pg (27.0-33.0); Mean Corpuscular Volume 102.3 fL (80-95); Mean Platelet Volume 9.8 fL (8.0-11.0); Monocytes % 11.7; Neutrophils % 69.1; RBC 4.27 m/cumm (4.50-6.00); RBC Distribution Width 13.9 % (11.8-14.1); White Blood Cell Count 4.11 k/cumm (4.4-10.8)
[2019-07-16 07:33] LABS: Bilirubin Negative (Negative); Blood Negative (Negative); Clarity Clear (Clear); Glucose Negative (Negative); Ketones Negative (Negative); Leukocyte Esterase Negative (Negative); Nitrite Negative (Negative); Specific Gravity 1.025 (1.005-1.025); pH 6.5 (5-8)
[2019-07-16 07:44] LABS: ALT 31 U/L (12-78); AST 23 U/L (15-37); Albumin 3.4 g/dL (3.4-5.0); Alkaline Phosphatase 93 U/L (46-116); Anion Gap 10.4 mmol/L (3-11); BUN 17 mg/dL (7-18); Bacteria Rare HPF (Negative); Bilirubin, Total 0.4 mg/dL (0.2-1.0); C & S Indicated? No; CO2 25.6 mmol/L (21.0-32.0); CREATININE 0.95 mg/dL (0.70-1.30); Calcium 8.6 mg/dL (8.5-10.1); Casts Negative LPF (Negative); Chloride 108 mmol/L (98-107); Crystals Negative HPF (Negative); Epithelial Cells Rare HPF (Negative); Glucose 117 mg/dL (70-100); Mucus Negative (Negative); Other Cells Negative (Negative); RBC Negative (0-2); Sodium 144 mmol/L (136-145); Total Protein 6.6 g/dL (6.4-8.2); WBC 0-2 HPF (0-5)
[2019-07-16 07:54] LABS: Diff Comment PLT Morph Reviewed; Platelet Count 86 x1000/uL (130-400)
[2019-07-16 07:55] LABS: Polychromasia Present
== END 2019-07-16 07:22 ==
PROVIDERS: PCP Internal Medicine; Visit Provider Nurse Practitioner
DX: C71.9 Malignant neoplasm of brain, unspecified (principal)
CPT/HCPCS: 36415; 80053; 81003; 81015; 85025

== ENCOUNTER 2019-07-30 03:26 | Outpatient (CLI) | payer OTHER, SELFPAY ==
[2019-07-30 08:04] LABS: Bilirubin Negative (Negative); Blood Trace-intact (Negative); Clarity Clear (Clear); Glucose Negative (Negative); Ketones Negative (Negative); Leukocyte Esterase Negative (Negative); Nitrite Negative (Negative); pH 6.5 (5-8)
[2019-07-30 08:04] LABS: Abs Immature Grans 0.02 k/cumm (0.0-0.09); Absolute Basophil Count 0.02 k/cumm (0.0-0.2); Absolute Eosinophil Count 0.15 k/cumm (0.0-0.7); Absolute Lymphocyte Count 0.74 k/cumm (1.2-3.4); Absolute Monocyte Count 0.47 k/cumm (0.11-0.7); Absolute Neutrophil Count 2.97 k/cumm (1.2-6.7); Basophils % 0.5; Eosinophils % 3.4; HCT 46.9 % (40.0-50.0); HGB 15.5 g/dL (13.5-17.5); Immature Grans % 0.5; Lymphocytes % 16.9; Mean Corpuscular Hemoglobin 33.5 pg (27.0-33.0); Mean Corpuscular Volume 101.5 fL (80-95); Mean Platelet Volume 10.2 fL (8.0-11.0); Monocytes % 10.8; Neutrophils % 67.9; RBC 4.62 m/cumm (4.50-6.00); RBC Distribution Width 13.8 % (11.8-14.1); White Blood Cell Count 4.37 k/cumm (4.4-10.8)
[2019-07-30 08:06] LABS: ALT 30 U/L (16-63); AST 30 U/L (15-37); Albumin 3.5 g/dL (3.4-5.0); Alkaline Phosphatase 97 U/L (46-116); Anion Gap 6.4 mmol/L (3-11); BUN 20 mg/dL (7-18); Bilirubin, Total 0.4 mg/dL (0.2-1.0); CO2 29.6 mmol/L (21.0-32.0); CREATININE 0.89 mg/dL (0.70-1.30); Calcium 8.8 mg/dL (8.5-10.1); Chloride 106 mmol/L (98-107); Glucose 110 mg/dL (70-100); Potassium 4.2 mmol/L (3.5-5.1); Sodium 142 mmol/L (136-145); Total Protein 6.6 g/dL (6.4-8.2)
[2019-07-30 08:23] LABS: Bacteria Rare HPF (Negative); C & S Indicated? No; Casts Negative LPF (Negative); Crystals Negative HPF (Negative); Epithelial Cells Rare HPF (Negative); Mucus Moderate (Negative); RBC 0-2 (0-2)
[2019-07-30 08:39] LABS: Platelet Count 95 x1000/uL (130-400)
[2019-07-30 08:40] LABS: Anisocytosis 1+; Diff Comment RBC Morph Reviewed; Macrocytosis 2+
== END 2019-07-30 03:46 ==
PROVIDERS: PCP Internal Medicine; Visit Provider Registered Nurse Oncology
DX: C71.9 Malignant neoplasm of brain, unspecified (principal)
CPT/HCPCS: 36415; 80053; 81003; 81015; 85025

== ENCOUNTER 2019-08-06 07:26 | Outpatient (CLI) | payer OTHER, SELFPAY ==
[2019-08-06 07:58] LABS: Abs Immature Grans 0.02 k/cumm (0.0-0.09); Absolute Basophil Count 0.03 k/cumm (0.0-0.2); Absolute Eosinophil Count 0.11 k/cumm (0.0-0.7); Absolute Lymphocyte Count 0.64 k/cumm (1.2-3.4); Absolute Monocyte Count 0.42 k/cumm (0.11-0.7); Absolute Neutrophil Count 3.54 k/cumm (1.2-6.7); Basophils % 0.6; Bilirubin Negative (Negative); Blood Small (Negative); Clarity Clear (Clear); Eosinophils % 2.3; Glucose Negative (Negative); HCT 45.6 % (40.0-50.0); HGB 15.4 g/dL (13.5-17.5); Immature Grans % 0.4; Ketones Negative (Negative); Leukocyte Esterase Negative (Negative); Lymphocytes % 13.4; Mean Corp. HGB Concentration 33.8 g/dL (32.0-36.0); Mean Corpuscular Hemoglobin 34.2 pg (27.0-33.0); Mean Corpuscular Volume 101.3 fL (80-95); Mean Platelet Volume 9.9 fL (8.0-11.0); Monocytes % 8.8; Neutrophils % 74.5; Nitrite Negative (Negative); RBC Distribution Width 13.8 % (11.8-14.1); Specific Gravity >= 1.030 (1.005-1.025); Urobilinogen 0.2 EU/dL (Up TO 0.2); White Blood Cell Count 4.76 k/cumm (4.4-10.8)
[2019-08-06 08:09] LABS: Bacteria Few HPF (Negative); C & S Indicated? No; Casts 0-2 Hyaline LPF (Negative); Crystals Negative HPF (Negative); Epithelial Cells Rare HPF (Negative); Mucus Moderate (Negative)
[2019-08-06 08:18] LABS: ALT 39 U/L (16-63); AST 31 U/L (15-37); Albumin 3.8 g/dL (3.4-5.0); Alkaline Phosphatase 93 U/L (46-116); Anion Gap 7.6 mmol/L (3-11); BUN 21 mg/dL (7-18); Bilirubin, Total 0.5 mg/dL (0.2-1.0); CO2 27.4 mmol/L (21.0-32.0); CREATININE 0.89 mg/dL (0.70-1.30); Calcium 8.6 mg/dL (8.5-10.1); Chloride 107 mmol/L (98-107); Diff Comment RBC Morph Reviewed; Glucose 118 mg/dL (70-100); Macrocytosis 2+; Platelet Count 86 x1000/uL (130-400); Sodium 142 mmol/L (136-145); Total Protein 6.9 g/dL (6.4-8.2)
== END 2019-08-06 07:46 ==
PROVIDERS: PCP Internal Medicine; Visit Provider Registered Nurse Oncology
DX: C71.9 Malignant neoplasm of brain, unspecified (principal)
CPT/HCPCS: 36415; 80053; 81003; 81015; 85025

== ENCOUNTER 2019-08-20 07:08 | Outpatient (CLI) | payer OTHER, SELFPAY ==
[2019-08-20 07:40] LABS: Abs Immature Grans 0.02 k/cumm (0.0-0.09); Absolute Basophil Count 0.04 k/cumm (0.0-0.2); Absolute Eosinophil Count 0.14 k/cumm (0.0-0.7); Absolute Lymphocyte Count 0.84 k/cumm (1.2-3.4); Absolute Monocyte Count 0.55 k/cumm (0.11-0.7); Eosinophils % 3.4; HCT 45.8 % (40.0-50.0); HGB 15.2 g/dL (13.5-17.5); Immature Grans % 0.5; Lymphocytes % 20.5; Mean Corp. HGB Concentration 33.2 g/dL (32.0-36.0); Mean Corpuscular Hemoglobin 33.8 pg (27.0-33.0); Mean Corpuscular Volume 101.8 fL (80-95); Mean Platelet Volume 9.2 fL (8.0-11.0); Monocytes % 13.4; Neutrophils % 61.2; RBC Distribution Width 13.9 % (11.8-14.1); White Blood Cell Count 4.09 k/cumm (4.4-10.8)
[2019-08-20 07:46] LABS: Bilirubin Negative (Negative); Blood Trace-intact (Negative); Clarity Clear (Clear); Glucose Negative (Negative); Ketones Negative (Negative); Leukocyte Esterase Trace (Negative); Nitrite Negative (Negative); Specific Gravity 1.025 (1.005-1.025); Urobilinogen 0.2 EU/dL (Up TO 0.2); pH 5.5 (5-8)
[2019-08-20 08:03] LABS: ALT 42 U/L (16-63); AST 29 U/L (15-37); Albumin 3.8 g/dL (3.4-5.0); Alkaline Phosphatase 95 U/L (46-116); Anion Gap 7.7 mmol/L (3-11); BUN 24 mg/dL (7-18); Bilirubin, Total 0.6 mg/dL (0.2-1.0); CO2 27.3 mmol/L (21.0-32.0); CREATININE 1.06 mg/dL (0.70-1.30); Chloride 105 mmol/L (98-107); Glucose 105 mg/dL (70-100); Sodium 140 mmol/L (136-145); Total Protein 6.8 g/dL (6.4-8.2)
[2019-08-20 08:09] LABS: Epithelial Cells Few HPF (Negative); WBC 20-50 HPF (0-5)
[2019-08-20 08:10] LABS: Bacteria Few HPF (Negative); C & S Indicated? Yes; Casts 0-2 Hyaline LPF (Negative); Crystals Negative HPF (Negative); Mucus Heavy (Negative)
[2019-08-20 08:14] LABS: Diff Comment RBC Morph Reviewed; Platelet Count 93 x1000/uL (130-400); RBC Morphology Normal
== END 2019-08-20 07:28 ==
PROVIDERS: PCP Internal Medicine; Visit Provider Registered Nurse Oncology
DX: C71.9 Malignant neoplasm of brain, unspecified (principal)
CPT/HCPCS: 36415; 80053; 81003; 81015; 85025; 87086

== ENCOUNTER 2019-09-04 07:17 | Outpatient (CLI) | payer OTHER, SELFPAY ==
[2019-09-04 07:46] LABS: Abs Immature Grans 0.01 k/cumm (0.0-0.09); Absolute Basophil Count 0.03 k/cumm (0.0-0.2); Absolute Eosinophil Count 0.14 k/cumm (0.0-0.7); Absolute Lymphocyte Count 0.78 k/cumm (1.2-3.4); Absolute Monocyte Count 0.47 k/cumm (0.11-0.7); Absolute Neutrophil Count 2.21 k/cumm (1.2-6.7); Basophils % 0.8; Eosinophils % 3.8; HCT 43.1 % (40.0-50.0); HGB 14.2 g/dL (13.5-17.5); Immature Grans % 0.3; Lymphocytes % 21.4; Mean Corp. HGB Concentration 32.9 g/dL (32.0-36.0); Mean Corpuscular Hemoglobin 33.6 pg (27.0-33.0); Mean Corpuscular Volume 101.9 fL (80-95); Mean Platelet Volume 9.5 fL (8.0-11.0); Monocytes % 12.9; Neutrophils % 60.8; RBC 4.23 m/cumm (4.50-6.00); RBC Distribution Width 13.9 % (11.8-14.1); White Blood Cell Count 3.64 k/cumm (4.4-10.8)
[2019-09-04 07:47] LABS: Bilirubin Negative (Negative); Blood Small (Negative); Clarity Clear (Clear); Glucose Negative (Negative); Ketones Negative (Negative); Leukocyte Esterase Negative (Negative); Nitrite Negative (Negative); Specific Gravity >= 1.030 (1.005-1.025)
[2019-09-04 07:52] LABS: Platelet Count 78 x1000/uL (130-400)
[2019-09-04 07:58] LABS: Bacteria Few HPF (Negative); Epithelial Cells Negative HPF (Negative)
[2019-09-04 07:59] LABS: C & S Indicated? Yes; Casts Negative LPF (Negative); Crystals Negative HPF (Negative); Mucus Heavy (Negative)
[2019-09-04 08:02] LABS: ALT 35 U/L (16-63); AST 24 U/L (15-37); Albumin 3.4 g/dL (3.4-5.0); Alkaline Phosphatase 92 U/L (46-116); Anion Gap 6.5 mmol/L (3-11); BUN 20 mg/dL (7-18); Bilirubin, Total 0.5 mg/dL (0.2-1.0); CO2 29.5 mmol/L (21.0-32.0); CREATININE 0.93 mg/dL (0.70-1.30); Calcium 8.4 mg/dL (8.5-10.1); Chloride 107 mmol/L (98-107); Glucose 101 mg/dL (70-100); Potassium 3.7 mmol/L (3.5-5.1); Sodium 143 mmol/L (136-145); Total Protein 6.2 g/dL (6.4-8.2)
== END 2019-09-04 07:37 ==
PROVIDERS: PCP Internal Medicine; Visit Provider Registered Nurse Oncology
DX: C71.9 Malignant neoplasm of brain, unspecified (principal)
CPT/HCPCS: 36415; 80053; 81003; 81015; 85025; 87086

== ENCOUNTER 2019-09-18 07:36 | Outpatient (CLI) | payer OTHER, SELFPAY ==
[2019-09-18 08:30] LABS: Abs Immature Grans 0.01 k/cumm (0.0-0.09); Absolute Basophil Count 0.04 k/cumm (0.0-0.2); Absolute Eosinophil Count 0.15 k/cumm (0.0-0.7); Absolute Lymphocyte Count 0.74 k/cumm (1.2-3.4); Absolute Monocyte Count 0.62 k/cumm (0.11-0.7); Absolute Neutrophil Count 2.78 k/cumm (1.2-6.7); Basophils % 0.9; Eosinophils % 3.5; HCT 43.1 % (40.0-50.0); HGB 14.2 g/dL (13.5-17.5); Immature Grans % 0.2; Lymphocytes % 17.1; Mean Corp. HGB Concentration 32.9 g/dL (32.0-36.0); Mean Corpuscular Hemoglobin 33.8 pg (27.0-33.0); Mean Corpuscular Volume 102.6 fL (80-95); Mean Platelet Volume 9.9 fL (8.0-11.0); Monocytes % 14.3; RBC Distribution Width 14.3 % (11.8-14.1); White Blood Cell Count 4.34 k/cumm (4.4-10.8)
[2019-09-18 08:41] LABS: ALT 36 U/L (16-63); AST 28 U/L (15-37); Albumin 3.3 g/dL (3.4-5.0); Alkaline Phosphatase 91 U/L (46-116); Anion Gap 6.3 mmol/L (3-11); BUN 19 mg/dL (7-18); Bilirubin, Total 0.5 mg/dL (0.2-1.0); CO2 30.7 mmol/L (21.0-32.0); CREATININE 0.96 mg/dL (0.70-1.30); Calcium 8.5 mg/dL (8.5-10.1); Chloride 107 mmol/L (98-107); Glucose 98 mg/dL (70-100); Potassium 3.7 mmol/L (3.5-5.1); Sodium 144 mmol/L (136-145); Total Protein 6.2 g/dL (6.4-8.2)
[2019-09-18 08:45] LABS: Platelet Count 78 x1000/uL (130-400)
== END 2019-09-18 07:56 ==
PROVIDERS: PCP Internal Medicine; Visit Provider Registered Nurse Oncology
DX: C71.9 Malignant neoplasm of brain, unspecified (principal)
CPT/HCPCS: 36415; 80053; 81003; 85025

== ENCOUNTER 2019-09-25 13:05 | Outpatient (CLI) | payer OTHER, SELFPAY ==
[2019-09-25 13:29] LABS: Abs Immature Grans 0.02 k/cumm (0.0-0.09); Absolute Basophil Count 0.03 k/cumm (0.0-0.2); Absolute Eosinophil Count 0.09 k/cumm (0.0-0.7); Absolute Neutrophil Count 3.15 k/cumm (1.2-6.7); Basophils % 0.7; HCT 41.6 % (40.0-50.0); HGB 14.2 g/dL (13.5-17.5); Immature Grans % 0.4; Lymphocytes % 17.4; Mean Corp. HGB Concentration 34.1 g/dL (32.0-36.0); Mean Corpuscular Hemoglobin 34.4 pg (27.0-33.0); Mean Corpuscular Volume 100.7 fL (80-95); Mean Platelet Volume 9.7 fL (8.0-11.0); Monocytes % 10.9; Neutrophils % 68.6; RBC 4.13 m/cumm (4.50-6.00); RBC Distribution Width 14.4 % (11.8-14.1); White Blood Cell Count 4.59 k/cumm (4.4-10.8)
[2019-09-25 13:31] LABS: Bilirubin Small (Negative); Blood Moderate (Negative); Clarity Clear (Clear); Glucose Negative (Negative); Ketones Negative (Negative); Leukocyte Esterase Negative (Negative); Nitrite Negative (Negative); Specific Gravity >= 1.030 (1.005-1.025)
[2019-09-25 13:41] LABS: ALT 32 U/L (16-63); AST 25 U/L (15-37); Albumin 3.5 g/dL (3.4-5.0); Alkaline Phosphatase 88 U/L (46-116); Anion Gap 5.5 mmol/L (3-11); BUN 22 mg/dL (7-18); Bilirubin, Total 0.8 mg/dL (0.2-1.0); CO2 29.5 mmol/L (21.0-32.0); CREATININE 0.92 mg/dL (0.70-1.30); Calcium 8.7 mg/dL (8.5-10.1); Chloride 107 mmol/L (98-107); Glucose 103 mg/dL (70-100); Potassium 3.5 mmol/L (3.5-5.1); Sodium 142 mmol/L (136-145); Total Protein 6.4 g/dL (6.4-8.2)
[2019-09-25 13:54] LABS: Bacteria Negative HPF (Negative); C & S Indicated? No; Casts Negative LPF (Negative); Crystals Negative HPF (Negative); Epithelial Cells Few HPF (Negative); Mucus Moderate (Negative); Other Cells Negative (Negative)
[2019-09-25 14:00] LABS: Platelet Count 68 x1000/uL (130-400)
[2019-09-25 14:01] LABS: Diff Comment PLT Morph Reviewed; RBC Morphology Normal
== END 2019-09-25 13:25 ==
PROVIDERS: PCP Internal Medicine; Visit Provider Registered Nurse Oncology
DX: C71.9 Malignant neoplasm of brain, unspecified (principal)
CPT/HCPCS: 36415; 80053; 81003; 81015; 85025